=== PATIENT | female | born 1960 | race Caucasian/White ===

== ENCOUNTER → 2024-04-11 08:18 | Outpatient (REF) | payer OTHER, SELFPAY | LOC: WDC 08:18 | PROVIDERS: ATTENDING PHYSICIAN Obstetrics & Gynecology Gynecology; FAMILY PHYSICIAN Family Medicine | DX: Z12.31 Encounter for screening mammogram for malignant neoplasm of breast (principal) | CPT/HCPCS: 77063; 77067 ==

== ENCOUNTER → 2025-04-22 08:54 | Outpatient (REF) | payer OTHER, SELFPAY | LOC: WDC 08:54 | PROVIDERS: ATTENDING PHYSICIAN Nurse Practitioner Adult Health; FAMILY PHYSICIAN Family Medicine | DX: Z12.31 Encounter for screening mammogram for malignant neoplasm of breast (principal) | CPT/HCPCS: 77063; 77067 ==